=== PATIENT | female | born 1975 | race African-American/Black ===

== ENCOUNTER 2019-05-01 09:44 | Emergency (ER) | payer MEDICAID ==
[~2019-05-01] VITALS: Ht 175.3 cm; Wt 72.6 kg
[2019-05-01 09:45] VITALS: BP 138/96
== END 2019-05-01 11:37 | disposition home or self-care (01) ==
LOC: ED 11:28
DX: M54.16 Radiculopathy, lumbar region (principal)
CPT/HCPCS: 72110; 81001; 96374; 99284; J1885